=== PATIENT | female | born 1990 | race Two or more races ===

== ENCOUNTER 2025-07-04 19:25 | Emergency (ER) | payer MEDICAID, SELFPAY ==
[2025-07-04 19:27] VITALS: BMI 38.9
[2025-07-04 19:45] VITALS: BP 127/87; PULSE 99; RESP 18; TEMP 36.9; O2SAT 98
--- NOTE | 2025-07-04 19:52 | EDNOTE_ITS ---
ED Abdominal Pain RME/HPI General Chief Complaint: Abdominal Pain Stated complaint: RIGHT LOWER ABD PAIN Time seen by provider: 07/04/25 19:31 Arrival date/time: 07/04/25 19:25 Source: patient, RN notes reviewed and old records reviewed Mode of arrival: ambulatory Limitations: no limitations RME / HPI RME / HPI narrative: 34yof presents to ED for 3-day history of intermittent RLQ abdominal pain. No fever, nausea/vomiting, diarrhea, dysuria or hematuria reported. No medications or treatments since symptom onset. Related Data Home Medications ?Medication ?Instructions ?Recorded ?Confirmed Nitrofurantoin Macrocrystals SR * 100 mg PO BID #0 cap s 03/27/14 (MACROBID *) Vitamin * 1 tab PO QDAY #0 tabs Previous Rx's ?Medication ?Instructions ?Recorded cefdinir 300 mg capsule 300 mg PO BID 7 days #14 cap s 07/04/25 ibuprofen 600 mg tablet 600 mg PO Q6H PRN pain #20 t abs 07/04/25 Allergies Allergy/AdvReac Type Severity Reaction Status Date / Time No Known Allergies Allergy Verified 07/04/25 19:26 Review of Systems Review of Systems Systems Reviewed: All systems reviewed, normal except as documented Constitutional Constitutional: Denies chills and Denies fever(s) Gastrointestinal Gastrointestinal: Reports abdominal pain, Denies loose stools, Denies nausea and Denies vomiting Genitourinary Genitourinary: Denies dysuria, Denies flank pain and Denies hematuria Past Medical History Past Medical History GASTROINTESTINAL: Positive Obesity Surgical History SURGICAL: Positive Section Social History SMOKING STATUS: Never smoker SUBSTANCE USE: does not use ALCOHOL: Never ED Exam General Limitations: Present no limitations General appearance: Present alert, in no apparent distress and obese Head Head exam: Present atraumatic and normocephalic Eye Eye exam: Present normal appearance, PERRL and EOMI ENT ENT exam: Present normal exam and mucous membranes moist Neck Neck exam: Present normal inspection and full ROM Chest Chest inspection: Present normal inspection and symmetric chest wall rise Respiratory Respiratory exam: Present normal lung sounds bilaterally; Absent respiratory distress Cardiovascular Cardiovascular exam: Present regular rate and normal rhythm Abdominal Exam Abdominal exam: Present soft and tenderness (RLQ, mild); Absent distention, guarding or rebound Extremities Exam Extremities exam: Present normal inspection and full ROM Neurological Exam Neurological exam: Present alert and oriented X3 Psychiatric Psychiatric exam: Present normal affect and normal mood Skin Skin exam: Present warm, dry, intact and normal color Course Quality Measures none Orders Category Date Time Status CT Screening NOW Care 07/04/25 20:[address] abdomen pelvis w con Stat Exams 07/04/25 20:34 Completed CBC Stat Lab 07/04/25 20:01 Completed CMP [Comprehensive Metabolic Panel] Stat Lab 07/04/25 20:01 Completed HCG Qualitative,Urine Stat Lab 07/04/25 20:15 Completed Lipase Stat Lab 07/04/25 20:01 Completed UA [Urinalysis] Stat Lab 07/04/25 20:15 Completed Vital Signs Vital signs: Vital Signs Temperature 98.4 F 07/04/25 19:45 Pulse Rate 99 07/04/25 19:45 Respiratory Rate 18 07/04/25 19:45 Blood Pressure 127/87 H 07/04/25 19:45 Pulse Oximetry (%) 98 07/04/25 19:45 Oxygen Delivery Method Room Air 07/04/25 19:45 Abdominal Pain MDM MDM Narrative MDM Narrative:: 34yof presents to ED for 3-day history of intermittent RLQ abdominal pain. No fever, nausea/vomiting, diarrhea, dysuria or hematuria reported. No medications or treatments since symptom onset. Will treat for UTI, UA positive for leuks/nitrites. CT abd/pelvis shows right inguinal LAD; suspect infectious etiology however, recommended close pcp follow up for further eval/workup if symptoms persist in 3-4 weeks. Labs, vitals and exam reassuring. Encouraged adequate fluids, symptomatic treatment prn. Stable for dc, RTED precautions given. Patient data External records reviewed:: [facility] previous records (04/07/14 admit for preelampsia) Clinical information provided by:: patient Social determinants that could affect healthcare access:: other (specify) (poor access to healthcare) Patient has the following chronic illnesses:: obesity How is presenting disease/condition affected by chronic disease/condition?: exacerbated by Evaluation data The following diagnostics were reviewed and interpreted by me:: lab results and radiology exam(s) Lab and/or radiology exams considered but not ordered:: none Interpretation Summary: No leukocytosis Negative upreg No ARIELLE UA +leuks/nitrites CT abd/pelvis: IMPRESSION: Pelvic kidneys, no renal or ureteral calculi, no hydronephrosis No CT findings of appendicitis or bowel obstruction Right external iliac lymphadenopathy right common femoral lymphadenopathy, differential would include infectious lymphadenopathy, Hodgkin's disease, non-Hodgkin's lymphoma, clinical correlation advised and follow-up recommended Dictated By: Raudel Morales MD Medications / Prescriptions Medications or Prescriptions considered but not ordered:: none Medication administrations:: none Consultations Consultation(s) initiated? (list below): No Diagnosis Differential diagnosis abdominal pain: abdominal pain, acute appendicitis, calculus of kidney, constipation, gastroenteritis and other (ovarian cyst, UTI, pyelo, ectopic ) Most likely diagnosis given after review of the tests above:: UTI, right inguinal LAD Admission Indicated Admission indicated?: not indicated Admission Request Was there a request for admission?: No Disposition Plan Disposition Plan: Discharge Discharge Attestation Discharge Attestation: The patient and all family members were given an opportunity to ask questions and understood the discharge instructions. Discharge instructions specifically effects, indications for sooner follow up or return to the emergency department, and the expected course of current diagnosis. Patient condition: Stable Discharge Plan Plan Patient Disposition: HOME (Self Care) Patient condition on transfer: Stable Prescriptions/Referrals Prescriptions/Med Rec: New cefdinir 300 mg capsule 300 mg PO BID 7 Days Qty: 14 0RF ibuprofen 600 mg tablet 600 mg PO Q6H PRN (Reason: pain) Qty: 20 0RF No Action Vitamin * 1 EACH tablet 1 tab PO QDAY Qty: 0 Nitrofurantoin Macrocrystals SR * (MACROBID *) 100 MG capsule 100 mg PO BID Qty: 0 Referrals: No Primary/Family,Physician [Primary Care Provider] - In 1 week Problem List Clinical Impression: UTI (urinary tract infection), Inguinal lymphadenopathy Patient/Caregiver Discharge Instructions Education Materials: Urinary Tract Infections in Women, Lymphadenopathy Additional Instructions: Make sure to closely follow up with PCP if symptoms do not resolve after taking antibiotic. Print Language: Dutch Stand Alone Forms: Jossy Award Info., Patient Portal Info Letter PA/STOCKROOM ATTENDANT Supervising Physician PA/STOCKROOM ATTENDANT Supervising Physician: Carola
[2025-07-04 20:21] LABS: Collection Type, Urine Clean Catch
[2025-07-04 20:27] LABS: Basophils # (Auto) 0.0 Thou/mm3 (0.0-0.2); Basophils % (Auto) 0 % (0-2.5); Eosinophils # (Auto) 0.1 Thou/mm3 (0.0-0.5); Eosinophils % (Auto) 1 % (0-10); Hematocrit 35.4 % (36.0-46.0); Hemoglobin 11.6 g/dL (12.0-16.0); Immature Granulocytes Auto 0.03 Thou/mm3 (0.00-0.00); Lymphocytes # (Auto) 2.9 Thou/mm3 (1.0-4.8); Lymphocytes % (Auto) 27 % (10-50); Mean Corpuscular HGB Conc 32.8 g/dl (31.0-37.0); Mean Corpuscular Hemoglobin 27.8 pg (25.0-35.0); Mean Corpuscular Volume 85 fL (80-100); Monocytes # (Auto) 0.7 Thou/mm3 (0.0-0.8); Monocytes % (Auto) 6 % (0-12); Neutrophils # (Auto) 6.7 Thou/mm3 (1.8-7.7); Neutrophils % (Auto) 64 % (37-80); Nucleated Red Blood Cell # 0.00 Thou/mm3 (0.00-0.00); Nucleated Red Blood Cell % 0 /100 WBC (0); Platelet Count 343 Thou/mm3 (140-440); RDW Standard Deviation 47.8 fL (36.4-46.3); Red Blood Count 4.17 Miln/mm3 (4.00-5.20); White Blood Count 10.5 Thou/mm3 (3.6-11.0)
[2025-07-04 20:29] LABS: HCG Qualitative,Urine Negative
[2025-07-04 20:31] LABS: Bilirubin,Urine Negative (Negative); Blood,Urine 1+ (Negative); Clarity,Urine Turbid (Clear/Hazy); Color,Urine Yellow (Lt Yel-Yel); Glucose, Urine Negative (Negative); Ketones,Urine Trace (Negative); Leukocyte Esterase,Urine Positive (Negative); Nitrite,Urine Positive (Negative); PH,Urine 6.0 (5.0-7.0); Protein,Urine Trace (Neg - Trace); RBC,Urine 6 /hpf (0-3); Specific Gravity,Urine 1.026 (1.001-1.035); Squamous Epithelial Cell,Urine 7 /hpf (0-5); Urobilinogen,Urine Negative mg/dL (0.0-1.0); WBC,Urine 4 /hpf (0-5)
--- NOTE | 2025-07-04 20:34 | XR_ITS ---
Examination: CT abdomen with intravenous contrast CT pelvis with intravenous contrast 2-D coronal reconstructions 2-D sagittal reconstructions Date and time of exam: July 04, 2025, 1031 hours INDICATIONS: Right lower abdominal pain beginning July 01, 2025. CTDI: vol (mGy) 13.4 DLP: (mGycm) 746 Technique: Multiple axial sections of the abdomen and pelvis have been obtained. 64 slice high-resolution scanner used. 3 mm axial sections have been obtained, post intravenous injection 60 cc [id number] 2-D sagittal, coronal reconstructions obtained. Low dose protocols were performed. One or more of the following dose reduction techniques were used; automated exposure control, adjustment of the mA and/or KV according to patient size, use of iterative reconstruction technique. Findings: No focal liver or splenic lesions No gallstones No pancreatic or adrenal mass No bowel obstruction No diverticulitis pelvic kidneys, no hydronephrosis Urinary bladder intact Fusion L4-L5 No inflamed appendix noted, no pericecal inflammatory change abnormal right external iliac and common femoral adenopathy, axial images 161 through 234 IMPRESSION: Pelvic kidneys, no renal or ureteral calculi, no hydronephrosis No CT findings of appendicitis or bowel obstruction Right external iliac lymphadenopathy right common femoral lymphadenopathy, differential would include infectious lymphadenopathy, Hodgkin's disease, non-Hodgkin's lymphoma, clinical correlation advised and follow-up recommended
[2025-07-04 20:45] LABS: Alanine Aminotransferase 15 U/L (10-49); Albumin, Serum 4.6 gm/dL (3.5-5.0); Albumin/Globulin Ratio 1.4 (1.2-2.2); Alkaline Phosphatase 64 U/L (46-116); Anion Gap 9 (7-16); Aspartate Amino Transferase 14 U/L (0-34); BUN/Creatinine Ratio 14 Ratio (12-20); Bilirubin,Total 0.3 mg/dL (0.3-1.2); Blood Urea Nitrogen 11 mg/dL (9-23); Calcium 9.7 mg/dL (8.3-10.6); Calcium (Corrected) 9.7 mg/dL (8.5-10.1); Carbon Dioxide 25.6 mMol/L (20.0-31.0); Chloride 104 mMol/L (98-107); Creatinine (Component) 0.8 mg/dL (0.6-1.3); Estimated Creatinine Clearance 108.5 mL/min (>60); Globulin 3.4 gm/dL (2.3-3.5); Glucose 140 mg/dL (74-106); Lipase 42 U/L (12-53); Osmolality,Calculated 278 (275-295); Potassium 3.6 mMol/L (3.4-5.1); Sodium 139 mMol/L (136-145); Total Protein 8.0 gm/dL (5.7-8.2); eGFR > 60 See Note
== END 2025-07-04 23:22 | disposition home or self-care (01) ==
PROVIDERS: Physician Assistant; Emergency Provider Emergency Medicine
DX: N39.0 Urinary tract infection, site not specified (principal); R59.0 Localized enlarged lymph nodes
CPT/HCPCS: 36415; 74177; 80053; 81001; 81025; 83690; 85025; 99283; A4649; Q9967